=== PATIENT | male | born 1990 | race Caucasian/White ===

== ENCOUNTER 2024-05-05 18:43 | Emergency (ER) | payer OTHER ==
[~2024-05-05] VITALS: Ht 167.6 cm; Wt 105.3 kg
[2024-05-05] MEDS ORDERED: SERTRALINE HCL50 MG PO (18:57)
[2024-05-05] MEDS ORDERED: ARIPIPRAZOLE2 MG PO (18:57)
[2024-05-05] MEDS ORDERED: NEOMYCIN/POLYMYXIN/DEXAMETH OPTH SUSPENSION BOTTLE OS ONE (19:15)
[2024-05-05] MEDS ORDERED: MAXITROL EYE DRO5 ML OPTH (20:43)
[2024-05-05 21:03] VITALS: BP 127/82
== END 2024-05-05 21:03 | disposition home or self-care (01) ==
LOC: ED 18:43
DX: H57.9 Unspecified disorder of eye and adnexa (principal); Z79.899 Other long term (current) drug therapy
CPT/HCPCS: 70450; 99283-25

== ENCOUNTER 2025-04-16 08:38 | Emergency (ER) | payer OTHER ==
[~2025-04-16] VITALS: Ht 167.6 cm; Wt 90.7 kg
[~2025-04-16 08:38] MED LIST: ARIPIPRAZOLE2 MG PO; MAXITROL EYE DRO5 ML OPTH; SERTRALINE HCL50 MG PO
[2025-04-16] MEDS ORDERED: IBUPROFEN 600 MG TAB PO ONE (09:15)
[2025-04-16] MEDS ORDERED: ACETAMINOPHEN 500 MG TAB PO ONE (09:15)
[2025-04-16 10:42] VITALS: BP 125/68
== END 2025-04-16 10:44 | disposition home or self-care (01) ==
LOC: ED 08:38
DX: M25.561 Pain in right knee (principal); Z79.899 Other long term (current) drug therapy
CPT/HCPCS: 73560; 99283; A9270